=== PATIENT | female | born 1980 | race Hispanic/Latino ===

== ENCOUNTER 2024-12-01 20:34 | Emergency (ER) | payer BC, MEDICAID ==
[~2024-12-01] VITALS: Ht 165.1 cm; Wt 98.9 kg
--- NOTE | 2024-12-01 20:48 | ERN ---
General Chief Complaint: Abdominal Pain Stated Complaint: C/O EPIGASTRIC PAIN W/NAUSEA X 1 WK Time Seen by MD: 20:37 Source: patient History of Present Illness Initial Comments Patient is a 44-year-old female coming in complaining of epigastric pain. Per patient he has been having it for one week. a Long with the she states that the pain presented on its own without food intake. Allergies: Coded Allergies: No Known Allergies (Unverified Allergy, Unknown, 12/01/24) Past Medical History Past Medical History: Diabetes-Type II Past Surgical History: Hysterectomy ROS Dictation CONSTITUTIONAL: No chills, no fever, no weakness, no diaphoresis, no malaise. HEAD/FACE: No signs of trauma. EENT: No eye pain, no blurred vision, no tearing, no double vision, no ear pain, no ear discharge, no nose pain, no nasal congestion, no throat pain, no throat swelling, no mouth pain. RESPIRATORY: No cough, no orthopnea, no SOB, no stridor, no wheezing. CARDIOVASCULAR: No chest pain, no edema, no palpitations, no syncope. GASTROINTESTINAL/ABDOMINAL: abdominal pain, no constipation, no diarrhea, no nausea, no vomiting. GENITOURINARY: No abnormal discharge, no dysuria, no frequent urination, no hematuria. No complaints of pain in the genitals. MUSCULOSKELETAL: No back pain, no gout, no joint pain, no joint swelling, no muscle pain, no muscle stiffness, no neck pain. INTEGUMENTARY: No change in color, no change in hair/nails, no dryness, no lesion, no lumps, no rash. NEUROLOGICAL/PSYCH: No anxiety, not depressed, no emotional problem, no headache, no numbness, no pre-existing deficit, no history of seizures, no tremors, no weakness. HEMATOLOGIC/LYMPHATIC: Not anemic, no history of blood clots, no apparent bleeding, no bruising, glands not swollen. All Systems Negative, Except as Noted. Physical Exam Physical Exam Dictation VITAL SIGNS: Reviewed. GENERAL APPEARANCE: Alert, oriented x3, no acute distress, obese. HEAD AND FACE: Non-traumatic. EYES: PERRL, pink conjunctivas, eyelid no trauma, anterior chamber clear. EARS: Pinnas intact and no signs of trauma or erythema. Ear canals clear and no discharge. TMs no erythema. NOSE: No discharge, no bleeding. OROPHARYNX: Mouth normal, teeth no caries, tongue pink. Pharynx clear, no erythema. Tonsils no exudates, no abscesses noted. Mucous membrane moist. NECK: Supple, non-tender, no thyromegaly, no masses, no JVD, no bruits. BREAST: Deferred. CHEST: No tenderness, no crepitus, no paradoxical movement, no retractions. LUNGS: Clear, well-ventilated, symmetric, no rales, no wheezing, no rhonchi, no stridor, good breath sounds bilaterally. HEART: Regular rate, regular rhythm, no murmur, no gallops. VASCULAR: No peripheral edema. ABDOMEN: Soft, positive bowel sounds, nondistended, no guarding, right upper quadrant tender, epigastric tenderness, no rebound, no masses no hepatomegaly, no splenomegaly, no Burr's sign, no hernias. RECTAL: Deferred. GENITAL: Deferred. NEUROLOGICAL: Normal speech, gross motor function intact, gross sensory funct ion intact. MUSCULOSKELETAL: Neck nontender, full range of motion, back nontender, full range of motion. EXTREMITIES: Nontender, full range of motion. SKIN: Color pink, dry, no turgor, no rash, no lacerations, no abrasions, no contusions. LYMPHATICS: Deferred. Results Laboratory and Microbiology Lab and Micro Result Laboratory Tests Test 12/01/24 20:42 12/01/24 20:53 Urine Color YELLOW (YELLOW) Urine Appearance CLOUDY (CLEAR) H Urine pH 5.5 (5.0-8.0) Urine Specific [place] 1.023 (1.001-1.031) Urine Protein NEGATIVE mg/dL (NEGATIVE) Urine Glucose (UA) 150 mg/dL (NEGATIVE) H Urine Ketones NEGATIVE mg/dL (NEGATIVE) Urine Occult Blood NEGATIVE (NEGATIVE) Urine Nitrate 2+ (NEGATIVE) H Urine Bilirubin NEGATIVE mg/dL (NEGATIVE) Urine Urobilinogen 0.2 mg/dL (0.2-1.0) Urine Leukocyte Esterase 75 Derick/uL (NEGATIVE) H Urine RBC 0-1 /HPF (0-1) Urine WBC 26-50 /HPF (0-1) H Urine Squamous Epithelial Cells MOD /HPF (0-2) Urine Bacteria FEW /HPF (None Seen) White Blood Count 8.7 K/uL (4.8-10.8) Red Blood Count 4.98 MIL/uL (4.00-5.50) Hemoglobin 14.6 g/dL (12.0-16.0) Hematocrit 44.1 % (36-48) Mean Corpuscular Volume 88.6 fL (79-99) Mean Corpuscular Hemoglobin 29.3 pg (27.0-33.0) Mean Corpuscular Hemoglobin Concent 33.1 g/dL (32.0-36.0) Red Cell Distribution Width 13.7 % (11.0-15.5) Platelet Count 207 K/uL (130-400) Mean Platelet Volume 11.2 fL (7.5-10.5) H Immature Granulocyte % (Auto) 0.3 % (0-1) Neutrophils (%) (Auto) 65.2 % (40.0-77.0) Lymphocytes (%) (Auto) 26.4 % (21.0-51.0) Monocytes (%) (Auto) 5.9 % (3.0-13.0) Eosinophils (%) (Auto) 1.7 % (0.0-8.0) Basophils (%) (Auto) 0.5 % (0.0-5.0) Neutrophils # (Auto) 5.7 K/uL (1.8-7.7) Lymphocytes # (Auto) 2.3 K/uL (1.0-4.8) Monocytes # (Auto) 0.5 K/uL (0.1-1.0) Eosinophils # (Auto) 0.15 K/uL (0.00-0.70) Basophils # (Auto) 0.04 K/uL (0.00-0.20) Absolute Immature Granulocyte (auto 0.03 K/uL (0-1) Nucleated Red Blood Cells 0.0 % (0.0-0.19) Sodium Level 138 mmol/L (136-145) Potassium Level 3.7 mmol/L (3.5-5.1) Chloride Level 102 mmol/L (101-111) Carbon Dioxide Level 28 mmol/L (21-32) Blood Urea Nitrogen 11 mg/dL (7-18) Creatinine 0.8 mg/dL (0.5-1.0) Glomerular Filtration Rate Calc 94 mL/min (>90) Random Glucose 178 mg/dL (70-105) H Total Calcium 9.3 mg/dL (8.5-10.1) Total Bilirubin 0.4 mg/dL (0.2-1.0) Aspartate Amino Transf (AST/SGOT) 10 U/L (10-37) Alanine Aminotransferase (ALT/SGPT) 33 U/L (12-78) Alkaline Phosphatase 150 U/L (50-136) H Troponin I High Sensitivity < 4 ng/L (4-50) L Total Protein 8.0 g/dL (6.0-8.3) Albumin 3.7 g/dL (3.5-5.0) Lipase 42 U/L (16-77) Human Chorionic Gonadotropin, Quant 0 mIU/mL (0-5) Labs Reviewed?: Yes EKG/XRAY/US/CT/MRI EKG Comment 12/01/2024 time 9:01 p.m. Ventricular rate 82 Sinus rhythm ND [address] wave elevation or depression CT Scan Comment [place] [address] [address] IMAGING REPORT Signed PATIENT: JANE QUIROZ MR#: [id number] : 1980 SEX: F AGE: 44 LOCATION: ED ORDER 00 STATUS: [facility] REPORT#: [id number] SERVICE 99 REASON: abd pain ORDERING PHYSICIAN: ARIES ABERNATHY MD PROCEDURE: ABD PEL WO - CT ABDOMEN/PELVIS W/O CONTRAST EXAM: CT Abdomen and Pelvis without IV contrast. CLINICAL HISTORY: Abdominal pain. TECHNIQUE: Thin collimated axial CT images of the abdomen and pelvis were obtained, with sagittal and coronal reformatted images also submitted. A CT scan is done according to ALARA (As Low As Reasonably Achievable). CONTRAST: None. COMPARISON: None. FINDINGS: Unremarkable visualized lung parenchyma. No focal abnormality within the liver, gallbladder, pancreas, spleen, adrenals, or kidneys. Mild fatty liver. Mild hepatosplenomegaly. There is no obvious bowel wall thickening. Bowel loops are normal in caliber without evidence of obstruction or ileus. The appendix is normal. A component of mild constipation is present in the colon. There is no abnormality within the urinary bladder. Status post hysterectomy. No lymphadenopathy. No free fluid. There is no acute osseous abnormality. Grade 1 anterolisthesis at the L5-S1 level with bilateral chronic spondylolysis and severe degenerative disc disease. IMPRESSIONS: No acute process in the abdomen or pelvis. Mild hepatosplenomegaly. Mild fatty liver. A component of mild constipation is present in the colon. Grade 1 anterolisthesis at the L5-S1 level with bilateral chronic spondylolysis and severe degenerative disc disease. /[place] DICTATED BY: KAYE ASHTON Jr., MD DATE: 12/02/2416 ELECTRONICALLY SIGNED BY: KAYE ASHTON Jr., MD DATE: 12/02/2416 [facility] MDM: Differential diagnosis: Constipation, gastritis, abdominal pain, Rationale: Tests considered and ordered secondary to shared decision making include: Previous outside records reviewed: Old ER visits. Risk of complication and/or morbidity or mortality of patient management: None Medications-Per medication reconciliation Need for hospitalization: Patient does not meet criteria for hospitalization. Need for emergency major/minor surgery: No Patient is a 44-year-old female coming in complaining of abdominal pain. Patient states that the pain was found in the epigastric region. Laboratory workup did not disclose acute findings. Ultrasound did not show any acute f indings either. Patient received medication for pain but because the pain was persistent a CT needed to be ordered. CT did not disclose acute findings except for constipation. Medication will be provided for symptomatic relief. I did advised her appropriate follow up with PCP for long-term management. ED Course Orders Procedure Category Date Status Time Cbc With Differential LAB 12/01/24 Complete 20:43 Comprehensive LAB 12/01/24 Complete Metabolic Panel 20:43 Troponin I High LAB 12/01/24 Complete Sensitivity 20:43 Hcg,Quantitative LAB 12/01/24 Complete 20:43 Urinalysis Profile LAB 12/01/24 Complete 20:43 12 Lead Ekg Tracing- EKG 12/01/24 Complete Technical 20:43 Ondansetron 4mg Inj PHA 12/01/24 Complete (Zofran 4mg Inj) 21:00 Pantoprazole 40mg Inj PHA 12/01/24 Complete (Protonix 40mg Inj 21:00 Lipase LAB 12/01/24 Complete 20:43 Us Abdominal Ruq\Ltd US 12/01/24 Resulted 20:48 Culture Urine [place] 12/01/24 In Process 21:09 Lidocaine Hcl 2% PHA 12/01/24 Complete Viscous (Lidocaine Hcl 22:00 Mag/Alum/Simeth 30ml PHA 12/01/24 Complete (Maalox Plus 30ml) 22:00 Ct Abdomen/Pelvis W/O CT 12/01/24 Resulted Contrast 22:00 Current Medications Medications (Trade) Dose Ordered Sig/Trinity Route PRN Reason Start Time Stop Time Status Last Admin Dose Admin Al Hydroxide/Mg Hydroxide (MAALox PLUS 30ML) 30 ml ONCE ONCE PO 12/01/24 22:00 12/01/24 22:01 DC 12/01/24 22:08 Lidocaine HCl (Lidocaine HCl 2% Viscous) 10 ml ONCE ONCE PO 12/01/24 22:00 12/01/24 22:01 DC 12/01/24 22:09 Ondansetron HCl (zoFRAN 4MG INJ) 4 mg ONCE ONCE IVP 12/01/24 21:00 12/01/24 21:01 DC 12/01/24 22:09 Pantoprazole Sodium (PROTonix 40MG INJ) 40 mg ONCE ONCE IVP 12/01/24 21:00 12/01/24 21:01 DC 12/01/24 22:09 Vital Signs Date Time Temp Pulse Resp B/P (MAP) Pulse Ox O2 Delivery O2 Flow Rate FiO2 12/01/24 21:21 98.6 82 18 130/82 98 Room Air* 0 21 12/01/24 20:37 98.8 89 20 137/86 98 Room Air DX & DISP Disposition: Discharge Departure Impression: Primary Impression: Constipation Additional Impression: Gastritis Condition: Stable Additional Instructions: FOLLOW-UP WITH PRIMARY CARE PROVIDER IN 1 TO 2 DAYS. TAKE MEDICATIONS DIRECTED HERE IN THE EMERGENCY ROOM. OKAY TO CONTINUE HOME MEDICATIONS UNLESS OTHERWISE DISCUSSED DURING YOUR VISIT IN THE EMERGENCY ROOM TODAY. RETURN TO YOUR NEAREST EMERGENCY ROOM IF SYMPTOMS WORSEN OR IF THERE IS NO IMPROVEMENT. CALL 911 IF YOU NEED IMMEDIATE ASSISTANCE. TAKE TYLENOL [id number] NEEDED AND IF NO CONTRAINDICATIONS ARE PRESENT. INCREASE ORAL HYDRATION. A WOUND CULTURE OR URINE CULTURE WAS ORDERED HERE IN THE EMERGENCY ROOM DEPARTMENT PLEASE FOLLOW-UP WITH PRIMARY CARE PROVIDER AND ADVISE THEM TO GET REPORTS FROM OUR FACILITY. IF YOU HAD ANY SHREYA WRAP/SPLINTS THAT WERE APPLIED HERE, PLEASE DO NOT REMOVE THEM UNTIL YOU SEE YOUR PRIMARY CARE OR SPECIALTY. Referrals: Referrals: SELF,REFERRAL (PCP) KATHERIN HUSAIN MD Time of Disposition: 23:21 ARIES ABERNATHY MD Dec 01, 2024 20:47
[2024-12-01 20:59] LABS: IMMATURE GRANULOCYTE ABSOLUTE 0.03 K/uL (0-1); NUCLEATED RED BLOOD CELLS 0.0 % (0.0-0.19); PLATELET COUNT (AUTO) 207 K/uL (130-400); RED BLOOD CELL COUNT(AUTO) 4.98 MIL/uL (4.00-5.50); RED CELL DISTRIBUTION WIDTH 13.7 % (11.0-15.5); WHITE BLOOD COUNT (AUTO) 8.7 K/uL (4.8-10.8)
[2024-12-01 21:02] LABS: APPEARANCE,URINE CLOUDY (CLEAR); GLUCOSE, URINE (UA) 150 mg/dL (NEGATIVE); LEUKOCYTE ESTERASE ,URINE 75 Leu/uL (NEGATIVE); NITRATE,URINE 2+ (NEGATIVE); OCCULT BLOOD,URINE NEGATIVE (NEGATIVE)
--- NOTE | 2024-12-01 21:06 | EKG ---
[facility] Test Date: 2024-12-01 Test Time: 21:01:48 Pat Name: JANE QUIROZ Department: [facility] Room: Gender: F Bi Architect: [id number] : 1980 Requested By: ARIES ABERNATHY Order Number: [id number] Reading MD: Marbin Rossi Measurements Intervals [place] Rate: 82 P: 40 NC: 184 QRS: 7 QRSD: 81 T: -7 QT: 371 QTc: 434 Interpretive Statements Sinus rhythm Low voltage, precordial leads No previous ECG available for comparison Electronically Signed On 12-02-2024 17:24:19 CDT by Marbin Rossi Please click the below link to view image of tracing.
[2024-12-01 21:08] LABS: ADD UA MICROSCOPIC YES
[2024-12-01 21:10] LABS: SQUAMOUS EPITHELIAL CELL,UR MOD /HPF (0-2)
[2024-12-01 21:21] LABS: ASPARTATE AMINOTRANSFERASE 10.0 U/L (10-37); CREATININE 0.8 mg/dL (0.5-1.0); GLOMERULAR FILTR. RATE CALC 94.0 mL/min (>90); GLUCOSE,RANDOM 178.0 mg/dL (70-105); HCG,QUANTITATIVE 0.0 mIU/mL (0-5); SODIUM SERUM 138.0 mmol/L (136-145); TOTAL PROTEIN, SERUM 8.0 g/dL (6.0-8.3); UREA NITROGEN, BLOOD 11.0 mg/dL (7-18)
[2024-12-01] MEDS: MAG/ALUM/SIMETH 30 ML UDCUP PO ONE (22:08)
[2024-12-01] MEDS: LIDOCAINE HCL 2% VISCOUS 15 ML UDCUP PO ONE (22:09)
--- NOTE | 2024-12-01 22:47 | HMCIMG ---
EXAM: US Abdomen, Right Upper Quadrant. CLINICAL HISTORY: Abdominal pain. TECHNIQUE: Right upper quadrant sonography performed with image documentation. COMPARISON: None provided. FINDINGS: LIVER: Mild hepatomegaly (19.8 cm) with increased echogenicity consistent with fatty infiltration of the liver. No mass. GALLBLADDER: The gallbladder appears normal. No gallbladder wall thickening seen. No gallstones are evident. The gallbladder wall measures 2 mm. COMMON BILE DUCT: No dilation. The common bile duct measures 4 mm PANCREAS: The pancreas is obscured by bowel gas. RIGHT KIDNEY: Unremarkable. Normal renal contours. No renal mass or calculus. No hydronephrosis. Right kidney measures 8.5 x 3.9 x 3.5 cm. IMPRESSION: Mild hepatomegaly with fatty infiltration of the liver. No cholelithiasis or cholecystitis. No acute process. /[place]
--- NOTE | 2024-12-01 23:17 | HMCIMG ---
EXAM: CT Abdomen and Pelvis without IV contrast. CLINICAL HISTORY: Abdominal pain. TECHNIQUE: Thin collimated axial CT images of the abdomen and pelvis were obtained, with sagittal and coronal reformatted images also submitted. A CT scan is done according to ALARA (As Low As Reasonably Achievable). CONTRAST: None. COMPARISON: None. FINDINGS: Unremarkable visualized lung parenchyma. No focal abnormality within the liver, gallbladder, pancreas, spleen, adrenals, or kidneys. Mild fatty liver. Mild hepatosplenomegaly. There is no obvious bowel wall thickening. Bowel loops are normal in caliber without evidence of obstruction or ileus. The appendix is normal. A component of mild constipation is present in the colon. There is no abnormality within the urinary bladder. Status post hysterectomy. No lymphadenopathy. No free fluid. There is no acute osseous abnormality. Grade 1 anterolisthesis at the L5-S1 level with bilateral chronic spondylolysis and severe degenerative disc disease. IMPRESSIONS: No acute process in the abdomen or pelvis. Mild hepatosplenomegaly. Mild fatty liver. A component of mild constipation is present in the colon. Grade 1 anterolisthesis at the L5-S1 level with bilateral chronic spondylolysis and severe degenerative disc disease. /[place]
[2024-12-01] MEDS: MAGNESIUM CITRATE 296 ML SOLUTION PO ONE (23:38)
[2024-12-01 23:39] VITALS: BP 142/76; PULSE 80; RESP 20; TEMP 98.4; O2SAT 97
== END 2024-12-01 23:43 | disposition home or self-care (01) ==
LOC: EDH 20:34
DX: K59.00 Constipation, unspecified (principal); K29.70 Gastritis, unspecified, without bleeding; E11.9 Type 2 diabetes mellitus without complications; R10.2 Pelvic and perineal pain; Z90.710 Acquired absence of both cervix and uterus
CPT/HCPCS: 99285; 74176; 96374; 76705; 96375; 84484; 80053; 84702; 83690; 85025; 87086 ×2; 87186; 81001; 36415; 93005; J2405; J2470